=== PATIENT | male | born 1970 | race Caucasian/White ===

== ENCOUNTER 2021-07-30 16:40 | Emergency (ER) | payer OTHER ==
[~2021-07-30] VITALS: Ht 193 cm; Wt 113.4 kg
--- NOTE | 2021-07-30 16:45 | NUR ---
CALLED PT IN [place], NO RESPONSE.
--- NOTE | 2021-07-30 17:25 | NUR ---
PT CAME TO ER C/O L FLANK PAIN RADIATING TO GROIN SINCE YESTERDAY. PAIN RATED 8/10 AND IS TWISTING IN QUALITY. HX OF KIDNEY STONES, LAST WAS 2 YEARS AGO. +NAUSEA, + VOMITING (2 TIMES YESTERDAY). ADMITS LIGHT BLOOD IN URINE. DENIES DYSURIA, FEVER. A&OX4, AMBULATORY, LAYING ON R SIDE IN BED.
[2021-07-30] MEDS ORDERED: IV NS 0.9% 1,000 ML BAG IV ONE (17:30)
[2021-07-30] MEDS ORDERED: MORPHINE SULFATE INJ 2 MG/ML DISP.SYRIN IV ONE ×2 (17:30→19:30)
[2021-07-30] MEDS ORDERED: ONDANSETRON HCL/PF 4 MG/2 ML VIAL IVP ONE (17:30)
--- NOTE | 2021-07-30 17:30 | NUR ---
SALINE LOCK ESABLISHED, BLOOD DRAWN AND SENT TO LAB
[2021-07-30 17:40] LABS: BILIRUBIN,URINE Negative (NEGATIVE); COLOR,URINE YELLOW (YELLOW); LEUKOCYTE ESTERASE ,URINE Negative (NEGATIVE); NITRITE, URINE Negative (NEGATIVE); PROTEIN,URINE Negative (NEGATIVE); UGLUCOSE Negative (NEGATIVE); UROBILINOGEN,URINE 0.2 EU/dL (0.2)
[2021-07-30] MEDS ORDERED: ONDANSETRON HCL/PF 4 MG/2 ML VIAL ONE (17:45)
[2021-07-30] MEDS ORDERED: MORPHINE SULFATE INJ 4 MG/ML DISP.SYRIN ONE ×2 (17:46→19:32)
[2021-07-30 17:58] LABS: BASOPHILS # (AUTO) 0.1 K/uL (0.0-0.2); BASOPHILS % (AUTO) 0.8 % (0.0-2.0); EOSINOPHILS % (AUTO) 1.7 % (0.0-6.0); HEMATOCRIT 41 % (39-51); HEMOGLOBIN 13.5 g/dL (13.5-17.5); LYMPHOCYTES # (AUTO) 0.6 K/uL (0.8-4.8); LYMPHOCYTES % (AUTO) 7.4 % (20.0-44.0); MEAN CORPUSCULAR HGB CONC 33 g/dl (31.0-36.0); MEAN CORPUSCULAR VOLUME 88 fL (80-96); MONOCYTES # (AUTO) 0.6 K/uL (0.1-1.30); MONOCYTES % (AUTO) 6.9 % (2.0-12.0); NEUTROPHILS % (AUTO) 83.2 % (43.0-81.0); PLATELET COUNT (AUTO) 270 K/uL (150-450); RED BLOOD CELL COUNT(AUTO) 4.63 MIL/uL (4.5-6.0); WHITE BLOOD COUNT (AUTO) 8.4 K/uL (4.3-11.0)
[2021-07-30 18:20] LABS: CALCIUM, SERUM 8.5 mg/dL (8.5-10.1); CREATININE 1.3 mg/dL (0.6-1.3); POTASSIUM 3.7 mmol/L (3.5-5.1)
[2021-07-30 18:26] LABS: ALBUMIN 3.4 g/dL (3.4-5.0); BILIRUBIN,TOTAL 0.2 mg/dL (0.2-1.0); TOTAL PROTEIN, SERUM 6.5 g/dL (6.4-8.2)
--- NOTE | 2021-07-30 18:44 | NUR ---
PT TAKEN TO CT
--- NOTE | 2021-07-30 19:29 | NUR ---
CALLED NARCISA FOR CT READ
[2021-07-30] MEDS ORDERED: KETOROLAC TROMETHAMINE INJ 30 MG/ML VIAL IV ONE (19:30)
[2021-07-30] MEDS ORDERED: KETOROLAC TROMETHAMINE INJ 30 MG/ML VIAL ONE (19:32)
--- NOTE | 2021-07-30 19:58 | NUR ---
CALLED [facility] FOR READ
[2021-07-30] MEDS ORDERED: TRAM50TA2 PO (20:16)
[2021-07-30] MEDS ORDERED: ACET-2605 PO (20:16)
--- NOTE | 2021-07-30 21:00 | NUR ---
PT WATCHING TV, ATTACHED TO MONITOR AND POX. VSS
[2021-07-30 21:35] LABS: ACETAMINOPHEN < 0 ug/ml (10-30); ALCOHOL, BLOOD < 3 mg/dL (0-0)
--- NOTE | 2021-07-30 23:00 | NUR ---
Patient is resting comfortably in bed with eyes closed. Easily aroused. VSS
--- NOTE | 2021-07-31 | NUR ---
PT SLEEPING, ATTACHED TO MONITOR AND POX. VSS
--- NOTE | 2021-07-31 01:50 | NUR ---
PT EATING, NEEDS MET
--- NOTE | 2021-07-31 04:50 | NUR ---
FAXED FACESHEET AND CLINICALS TO [facility].
--- NOTE | 2021-07-31 05:43 | NUR ---
SPOKE TO ART AT [facility]. CLINICALS REC'D. IN PROCESS
--- NOTE | 2021-07-31 06:51 | NUR ---
PT GOT ADMITTED AT [facility] BY DR ANDREW. # FOR REPORT: [phone] [facility] BLMarquita TRANSPORTATION ARRANGED FOR ETA: [id number]
--- NOTE | 2021-07-31 06:59 | NUR ---
REPORT GIVEN TO LUDWIN AT [facility]
[2021-07-31 09:35] VITALS: BP 144/99
--- NOTE | 2021-07-31 09:40 | NUR ---
TRASPORTED TO [facility] IN STABLE CONDITION.
== END 2021-07-31 09:43 ==
LOC: ER 16:59
DX: R45.851 Suicidal ideations (principal); R10.9 Unspecified abdominal pain; N18.9 Chronic kidney disease, unspecified; Z20.822 Contact with and (suspected) exposure to COVID-19; R10.32 Left lower quadrant pain
CPT/HCPCS: 36415; 74176; 80048; 80076; 80143; 80307; 80320; 81003; 85025; 87426; 96361; 96374; 96375; 96376; 99285; C9803; J1885; J2270 ×2; J2405; J7030; G0480